=== PATIENT | male | born 1980 | race Caucasian/White ===

== ENCOUNTER 2016-11-27 14:10 | Emergency (ER) | payer OTHER ==
[~2016-11-27] VITALS: Ht 175.3 cm; Wt 72.5 kg
[~2016-11-27 14:10] MED LIST: ATEN-175 PO; CLON1TAB3 PO; LOSA50TA6 PO; MIRT30TA2 PO
[2016-11-27 14:14] VITALS: TEMP 36.4; Ht 175.3 cm; Wt 72.5 kg
[2016-11-27] MEDS ORDERED: KETOROLAC TROMETHAMINE 30 MG/ML VIAL IV STA (14:32)
[2016-11-27] MEDS ORDERED: PROCHLORPERAZINE 5 MG/ML 2 ML VIAL IV STA (14:32)
[2016-11-27] MEDS ORDERED: DiphenhydrAMINE HCL 50 MG/ML VIAL IV STA (14:32)
[2016-11-27] MEDS ORDERED: SODIUM CHLORIDE 0.9% 1000ML 1,000 ML IV STA (14:32)
[2016-11-27] MEDS ORDERED: LOSA1TAB PO (14:42)
[2016-11-27 15:16] LABS: BASO % 0.1 %; BASO ABS # 0.01 K/uL (0-0.2); COMPLETE YES; EOS % 0.9 %; HEMATOCRIT 44.3 % (42-52); IG% 0.1 %; LYMPH % 17.7 %; LYMPH ABS # 1.37 K/uL (1.2-3.4); MEAN CELL VOLUME 97.6 fL (80-100); MEAN CORPUSCULAR HEMOGLOBIN 33.9 pg (25-34); MEAN CORPUSCULAR HGB CONC 34.8 g/dl (32-36); MEAN PLATELET VOLUME 9.5 fL (7.4-10.4); MONO % 6.1 %; NEUT % 75.1 %; PLATELET COUNT 223 K/uL (130-400); RED BLOOD COUNT 4.54 M/uL (4.7-6.1); WHITE BLOOD COUNT 7.74 K/uL (4.8-10.8)
[2016-11-27 15:46] LABS: ALT/SGPT 33 U/L (12-78); BLOOD UREA NITROGEN 9 mg/dl (7-18); BUN/CREATININE RATIO 7.9 (10-20); CALCIUM 9.3 mg/dl (8.5-10.1); CARBON DIOXIDE 30 mmol/L (21-32); CHLORIDE 110 mmol/L (98-107); GLUCOSE 122 mg/dl (70-99); POTASSIUM 3.4 mmol/L (3.5-5.1); SODIUM 146 mmol/L (136-145)
[2016-11-27 15:49] LABS: ALKALINE PHOSPHATASE 63 U/L (45-117); AST/SGOT 10 U/L (15-37)
--- NOTE | 2016-11-27 15:49 | DIAGNOSTIC IMAGING REPORT ---
HEAD CT NONCONTRAST CT DOSE: 537.48 mGy.cm HISTORY: Trauma. Mental status change. Headache, new pattern, fall 2 mo w [facility], HTN TECHNIQUE: Multiaxial CT images of the head were performed without the use of intravenous contrast. Comparison: None. Findings: The paranasal sinuses and mastoid air cells are clear. The calvarium and skull base are intact. The ventricles and sulci are within normal limits. There is no mass, hematoma, midline shift, or acute infarct. Impression: No acute intracranial abnormality. Electronically signed by: Jaren Marks M.D. 11/27/2016 3:47 PM Dictated Date/Time: 11/27/2016 3:38 PM
[2016-11-27] MEDS ORDERED: OXYCODONE/ACETAMINOPHEN 5-325 TAB PO ONE (17:00)
--- NOTE | 2016-11-27 17:09 | EMERGENCY ROOM VISIT NOTE ---
History Report prepared by Clara: Ugo Nuñez Under the Supervision of: Dr. Megan Mack M.D. First contact with patient: 14:24 Chief Complaint: HEADACHE Stated Complaint: EXTREME PAIN ON RT SIDE OF HEAD, EARS History of Present Illness The patient is a 36 year old male who presents to the Emergency Room with complaints of a worsening headache beginning 4 hours ago. He has a history of migraines, but states that his pain feels a little different than his typical migraines. He states that the headache is localized to the right side of his head and involves his ear. The patient denies any modifying factors. He notes that he fell and hit his head two months ago, but has not had a headache this severe since that happened. He has a history of high blood pressure and states that he has been taking his medication as normal. The patient denies any recent vomiting. Source of History: patient Onset: 4 hours ago Position: head (right sided) Timing: constant Modifying Factors (Worsening): other (none) Modifying Factors (Relieving): other (none) Associated Symptoms: No vomiting Review of Systems See HPI for pertinent positives & negatives. A total of 10 systems reviewed and were otherwise negative. Past Medical & Surgical Medical Problems: (1) Hypertension (2) Migraine Family History Diabetes mellitus Heart disease Social History Smoking Status: Current Every Day Smoker Alcohol Use: occasionally Drug Use: marijuana Marital Status: single, in relationship Housing Status: lives with family Occupation Status: unemployed Current/Historical Medications Scheduled Atenolol (Tenormin), 100 MG PO BID Clonazepam (Klonopin), 1 MG PO TID Losartan Potassium (Cozaar), 50 MG PO HS Losartan Potassium (Cozaar), 25 MG PO HS Mirtazapine Soltab (Remeron Soltab), 30 MG PO HS Allergies Coded Allergies: No Known Allergies (Verified , 11/27/16) Physical Exam Vital Signs Date Time Temp Pulse Resp B/P (MAP) Pulse Ox O2 Delivery O2 Flow Rate FiO2 11/27/16 17:35 75 18 118/77 99 11/27/16 16:51 65 20 137/105 100 Room Air 11/27/16 15:26 76 137/81 11/27/16 14:14 36.4 91 18 169/106 99 Room Air Physical Exam Vital signs reviewed. General: Well-appearing male, in no significant distress. No meningeal signs. HEENT: No scleral icterus, PERRLA, neck supple. Atraumatic. Cardiovascular: Regular rate and rhythm, no extra sounds. Pulmonary: Clear to auscultation bilaterally, normal work of breathing. Abdomen: Soft, nontender, nondistended, positive bowel sounds. Musculoskeletal: Atraumatic, no peripheral edema. Neurologic: Patient awake alert and oriented x 3, full strength in all 4 extremities. Cranial nerves 2 through 12 grossly intact. Skin: Warm, dry, no rash Medical Decision & Procedures ER Provider Diagnostic Interpretation: CT results as stated below per my review and radiologist interpretation: HEAD CT NONCONTRAST Findings: The paranasal sinuses and mastoid air cells are clear. The calvarium and skull base are intact. The ventricles and sulci are within normal limits. There is no mass, hematoma, midline shift, or acute infarct. Impression: No acute intracranial abnormality. Electronically signed by: Jaren Marks M.D. Laboratory Results 11/27/16 13:00 Red Blood Count 4.54, Mean Corpuscular Volume 97.6, Mean Corpuscular Hemoglobin 33.9, Mean Corpuscular Hemoglobin Concent 34.8, Mean Platelet Volume 9.5, Neutrophils (%) (Auto) 75.1, Lymphocytes (%) (Auto) 17.7, Monocytes (%) (Auto) 6.1, Eosinophils (%) (Auto) 0.9, Basophils (%) (Auto) 0.1, Neutrophils # (Auto) 5.81, Lymphocytes # (Auto) 1.37, Monocytes # (Auto) 0.47, Eosinophils # (Auto) 0.07, Basophils # (Auto) 0.01 11/27/16 13:00 Test 11/27/16 13:00 White Blood Count 7.74 K/uL (4.8-10.8) Red Blood Count 4.54 M/uL (4.7-6.1) Hemoglobin 15.4 g/dL (14.0-18.0) Hematocrit 44.3 % (42-52) Mean Corpuscular Volume 97.6 fL (80-100) Mean Corpuscular Hemoglobin 33.9 pg (25-34) Mean Corpuscular Hemoglobin Concent 34.8 g/dl (32-36) Platelet Count 223 K/uL (130-400) Mean Platelet Volume 9.5 fL (7.4-10.4) Neutrophils (%) (Auto) 75.1 % Lymphocytes (%) (Auto) 17.7 % Monocytes (%) (Auto) 6.1 % Eosinophils (%) (Auto) 0.9 % Basophils (%) (Auto) 0.1 % Neutrophils # (Auto) 5.81 K/uL (1.4-6.5) Lymphocytes # (Auto) 1.37 K/uL (1.2-3.4) Monocytes # (Auto) 0.47 K/uL (0.11-0.59) Eosinophils # (Auto) 0.07 K/uL (0-0.5) Basophils # (Auto) 0.01 K/uL (0-0.2) RDW Standard Deviation 44.8 fL (36.4-46.3) RDW Coefficient of Variation 12.5 % (11.5-14.5) Immature Granulocyte % (Auto) 0.1 % Immature Granulocyte # (Auto) 0.01 K/uL (0.00-0.02) Anion Gap 6.0 mmol/L (3-11) Est Creatinine Clear Calc Drug Dose 93.8 ml/min Estimated GFR () 100.3 Estimated GFR (Non- 86.5 BUN/Creatinine Ratio 7.9 (10-20) Calcium Level 9.3 mg/dl (8.5-10.1) Total Bilirubin 0.2 mg/dl (0.2-1) Direct Bilirubin < 0.1 mg/dl (0-0.2) Aspartate Amino Transf (AST/SGOT) 10 U/L (15-37) Alanine Aminotransferase (ALT/SGPT) 33 U/L (12-78) Alkaline Phosphatase 63 U/L (45-117) Total Protein 6.6 gm/dl (6.4-8.2) Albumin 3.7 gm/dl (3.4-5.0) Laboratory results per my review. Medications Administered Medications (Trade) Dose Ordered Sig/Pilo Route Start Time Stop Time Status Last Admin Dose Admin Prochlorperazine Edisylate (Compazine Inj) 10 mg NOW STAT IV 11/27/16 14:32 11/27/16 14:34 DC 11/27/16 14:54 10 MG Ketorolac Tromethamine (Toradol Inj) 30 mg NOW STAT IV 11/27/16 14:32 11/27/16 14:34 DC 11/27/16 14:54 30 MG Diphenhydramine HCl (Benadryl Inj) 25 mg NOW STAT IV 11/27/16 14:32 11/27/16 14:34 DC 11/27/16 14:55 25 MG Sodium Chloride 1,000 ml @ 999 mls/hr Q1H1M STAT IV 11/27/16 14:32 11/27/16 15:32 DC 11/27/16 14:56 999 MLS/HR Oxycodone/ Acetaminophen (Percocet 5-325mg Tab) 1 tab NOW ONCE PO 11/27/16 17:00 11/27/16 17:01 DC 11/27/16 16:58 1 TAB ED Course 1430: Past medical records reviewed. The patient was evaluated in room C10. A complete history and physical examination was performed. 1432: Ordered Sodium Chloride 1000 ml @ 999 mls/hr IV, Benadryl Inj 25 mg IV, Toradol Inj 30 mg IV, Compazine Inj 10 mg IV. 1700: Ordered Percocet 5-325 mg Tab 1 tab PO. 1702: Upon reevaluation, the patient appeared to have improvement of his symptoms. I discussed findings with him. He verbalized agreement of the treatment plan. The patient was discharged home. Medical Decision DDx: Intracranial hemorrhage, intracranial mass, migraine headache, tension headache , sinusitis, meningitis This patient was evaluated and appeared to be in some discomfort. IV access was obtained and laboratory work was drawn. The patient was given IV Compazine 10 mg, IV Benadryl 25 mg and IV Toradol 30 mg. He was hydrated with normal saline solution. CT scan of the head was performed as this is an unusual headache for the patient. This study is negative. The patient was reevaluated and stated he had significant improvement although he had some residual pain. His given one Percocet tablet 5/325. He was discharged to the care of a ride. He was advised not to drive after receiving the above medications. He'll follow -up with his primary care physician for reevaluation and return to the ER for worsening of symptoms or any medical concerns. Impression Primary Impression: Migraine Scribe Attestation The scribe's documentation has been prepared under my direction and personally reviewed by me in its entirety. I confirm that the note above accurately reflects all work, treatment, procedures, and medical decision making performed by me. Departure Information Dispostion Home / Self-Care Referrals No Doctor, Assigned (PCP) Forms HOME CARE DOCUMENTATION FORM, IMPORTANT VISIT INFORMATION Patient Instructions My [facility] Additional Instructions Diagnosis: Migraine Do not drive for 6 hours after receiving medications in the ER. Ibuprofen 600 mg every 6 hours as needed for pain with food. Drink plenty of clear fluids. Follow-up with your physician this week for reevaluation. Return to the ER for worsening of symptoms or any medical concerns.
[2016-11-27 17:35] VITALS: BP 118/77; PULSE 75; O2SAT 99
== END 2016-11-27 17:37 | disposition home or self-care (01) ==
LOC: C.EDB 14:12 → C.EDC 17:37
DX: G43.909 Migraine, unspecified, not intractable, without status migrainosus (principal); I10 Essential (primary) hypertension; Z83.3 Family history of diabetes mellitus; Z82.49 Family history of ischemic heart disease and other diseases of the circulatory system; F17.200 Nicotine dependence, unspecified, uncomplicated; F12.90 Cannabis use, unspecified, uncomplicated